=== PATIENT | female | born 1965 | race Caucasian/White ===

== ENCOUNTER 2016-12-09 09:07 | Emergency (ER) | payer OTHER ==
[~2016-12-09] VITALS: Ht 157.5 cm; Wt 88.9 kg
[~2016-12-09 09:07] MED LIST: AMLODIPINE10 M2 PO; ASPIRIN 81MG TA81 MG PO; CLINDAMYCIN300 MG PO; FUROSEMIDE 20MG20 MG FT; HYDROCHLOROTHIA25 M1 PO; LOSARTAN POTASS25 MG PO; METOPROLOL25 MG PO; POTASSIUM CHLO20 ME2 PO; VENTOLIN H0.09 MG/Ac IH
[2016-12-09] MEDS ORDERED: CARVEDILOL3.125 MG PO (09:17)
[2016-12-09] MEDS ORDERED: ENTRESTO 49 MG1 EACH PO (09:18)
[2016-12-09] MEDS ORDERED: PROVENTIL0.09 MG/A1 IH (09:37)
--- NOTE | 2016-12-09 09:38 | Urgent Treatment Center Report ---
History of Present Issue Date/Time Seen by Provider 12/09/16 0920 Visit Reason Pt arrived:Walked Presenting Problem:PT STATES COUGH AND CONGESTION FOR PAST FIVE DAYS. STATES WHEN SHE COUGHS, HER CHEST AND BACK HURTS Location if Accident: Onset of symptoms date/time:/ or onset unknown for:MEDICAL HX UNKNOWN Have you (or family members/close friends) recently traveled outside the [place]? N If Yes, where/when: Have you had exposure to infectious disease within the past month? TB? Other? Specify: c/o "I think I have bronchitis and need a steroid shot. I don't like steroid pills because of the side effects but a shot doesn't do that to me." c/o frequent nonprod cough x 4-5 days. Worse at night, with activity, with talking. Has noticed mild SOA and not sure about wheezing. aches but no fever or chills. Hx of tobacco abuse but quit 01/2016. Hasn't taken or tried anything for symptoms "because I now I just need some steroids". No known sick contacts. Source patient Exam Limitations no limitations ALLERGIES Coded Allergies: Sulfa (Sulfonamide Antibiotics) (03/21/16) Tetanus Vaccines and Toxoid (TETANUS VACCINES & TOXOID) (03/21/16) amoxicillin (03/21/16) clavulanic acid (03/21/16) Home Medications Reported Medications Furosemide (Furosemide) 20 MG FT DAILY #30 ASPIRIN (Aspirin) 81 MG PO DAILY POTASSIUM CHL (Potassium Chloride) 20 MEQ PO DAILY Carvedilol (Carvedilol 3.125MG) 3.125 MG PO BID Sacubitril/Valsartan (Entresto 49 MG-51 MG Tablet) 1 EACH PO BID History Medical History General CAD? No Angina: No AR: No Hypertension? Yes Hyperlipidemia? No CHF? Yes DVT? No PE? No COPD? No Asthma? No Anemia? No GERD? No Gastric ulcers? No GI Bleed? No Hernia? No Thyroid Problems? No Hypothyroidism? No CVA? No Seizures? No Diabetes? No Renal Insuffiency? No UTI? Yes Stones? No BPH? No GB Disease: No Nephritic Syndrome? No Asplenia? No Hepatitis? No Sickle Cell Disease? No Arthritis? No Migraines? No Cataracts? No Glaucoma? No MRSA? No HIV? No TB? No Anxiety? No Depression? No Cancer? No More? No Immunization HX DT/Tetanus 1996 Surgical Hx Previous Surgery?Y Tubal Ligation D & C HYSTERECTOMY HEART CATH [employer] Hx LMP N/A Family History Family HX Diabetes No CAD Yes Hypertension No Hyperlipidemia No Cancer Yes TB No Social History Smoking Hx Smoker: Former Smoker Tobacco: No Packs/day 1 1/2 - 2 Packs Alcohol Alcohol: No Review of Systems All Other Systems Reviewed and Negative Constitutional see HPI Eyes denies drainage ENT denies: ear pain, nose discharge, nose congestion, throat pain. Respiratory see HPI Cardiovascular denies chest pain, denies edema, denies palpitations Gastrointestinal denies no symptoms reported Musculoskeletal back pain ("from coughing now") Skin denies rash Psychiatric/Neurological denies no symptoms reported Physical Exam Vital Signs Vital Signs Date Time Temp Pulse Resp B/P Pulse O2 O2 Flow FiO2 Ox Delivery Rate 12/09 914 97.4 70 18 146/77 95 General Appearance no apparent distress, obese Eye Exam - bilateral eye normal exam Ear, Nose, Throat normal ENT inspection Neck non-tender, supple Respiratory Status Yes: trachea midline, chest symmetrical, non tender chest, non productive cough (worse w/ deep breaths). No: respiratory distress, use of accessory muscles, pain on inspiration, pain on expiration. Lung Sounds anterior: lungs clear. posterior: lungs clear. bilateral: lungs clear. Cardiovascular regular rate/rhythm, no peripheral edema, no murmur Neurologic alert, oriented x 3 Mental status normal mood/affect Skin normal color, warm/dry Lymphatic no adenopathy Medical Decision Making LABS/Meds/Orders Pt receiving controlled substance in ED? No Results/Orders Current Medication Orders Sig/Yassine Start time Last Medication Dose Route Stop Time Status Admin Methylprednisolone 0 .STK-MED ONE 12/09 930 DC Sodium Succinate .ROUTE Methylprednisolone 125 MG ONCE ONE 12/09 929 DC 12/09 Sodium Succinate IM 12/09 930 0934 Departure Departure Time of Disposition 0940 Disposition DC Home or Self Care(routine) Clinical Impression Primary Impression: Acute bronchitis Qualifiers: Bronchitis organism: unspecified organism Qualified Code: J20.9 - Acute bronchitis, unspecified Condition STABLE Referrals NO REFERRAL Follow up IMMEDIATELY with your primary care, ER or [facility] for new or worsening symptoms OR no noticeable improvement over the next 72 hours. 911 for difficulty breathing. Patient Instructions DI for Acute Bronchitis Additional Instructions * No sign of bacterial infection. Likely viral. Virus can take 7-14 days to run their course but the medication prescribed should help you feel better. If not, be sure to follow up. Viruses can lead to infection so follow up if new or worsening symptoms is important. * Monitor Temp. No fever over the last 4-5 days so wouldn't expect one. If one starts, be sure to follow up. * humidifier/vaporizer/hot steamy shower * Inhaler every 4-6 hours as needed like we discussed. You said you have used one in the past. Should help open airways and improve cough, wheezing, shortness of breath. * Mucinex during the day for your cough and cough suppressant only at night. Be sure to drink lots of water but no more then your restrictions. Insurance may not cover a prescription of mucinex. Might be cheaper to get 400mg tablets and take 2 tablets morning, midday and evening all with lots of water. * Promethazine DM is currently unavailable due to back order. Try robitussin DM but Use it only at night and mucinex during the day. * Solu-medrol Injection: you received an injection of solu-medrol today. This is a steroid as we discussed. Remember as we discussed, steroids can cause you to feel flushed, jittery, difficult to sleep, energetic, higher blood pressure. You report you have taken steroids before and aware of this. Follow up IMMEDIATELY for new or worsening symptoms OR no noticeable improvement over the next 48-72 hours. 911 for difficulty breathing. Discharge Counseling Counseled pt/family regarding diagnosis, medications/RX, home care, follow up needs Prescriptions Current Visit Scripts ALBUTEROL (Proventil Hfa Inhaler) 1-2 PUFF IH Q4-6H PRN PRN SOA, wheezing, #1 CAN at 0938
[2016-12-09 09:49] VITALS: BP 146/77
--- OUTSIDE RECORDS SUMMARY | 2016-12-09 10:11 | External Medical Summary Rpt ---
Author Author , Organization [employer] Address Unknown Phone Unavailable Purpose Continuity of Care Document - through 2016
--- OUTSIDE RECORDS SUMMARY | 2016-12-09 10:11 | External Medical Summary Rpt ---
Author Author [employer] Organization [employer] Address Unknown Phone Unavailable Purpose Continuity of Care Document - through 2016
--- OUTSIDE RECORDS SUMMARY | 2016-12-09 10:11 | External Medical Summary Rpt ---
Author Author [facility] Organization [facility] Address Unknown Phone Unavailable Care Team Providers Care Meat Stocker Name Role Phone CHADWICK YUSUF PCP [phone] Encounter [facility] [id number] Date(s): 02/19/16 - 02/22/16 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 AGENT Vital Signs Most recent 1 2 3 to oldest [Reference Range]: Temperature Oral Oral (02/21/16 Oral Source (02/22/16 3:20 AM) 11:30 PM) (02/21/16 7:30 PM) Temperature Fahrenheit Fahrenheit Fahrenheit Mode (02/22/16 3:20 AM) (02/21/16 11:30 (02/21/16 7:30 PM) PM) Temperature, 97.1 Deg F 97.5 Deg F 98.2 Deg F Fahrenheit (02/22/16 3:20 AM) (02/21/16 11:30 (02/21/16 7:30 PM) [96.8-99.7 PM) Deg F] Clinical 36.2 Deg C 36.4 Deg C 36.8 Deg C Temperature, (02/22/16 3:20 AM) (02/21/16 11:30 (02/21/16 7:30 PM) C PM) Heart Rate, 102 bpm 89 bpm 110 bpm Apical *HI* (02/21/16 8:53 PM) *HI* [60-100 bpm] (02/22/16 8:47 AM) (02/21/16 8:11 AM) Peripheral 124 bpm Pulse Rate *HI* [60-100 bpm] (02/19/16 4:51 PM) Heart Rate 96 bpm 96 bpm 55 bpm Monitored (02/22/16 8:08 AM) (02/22/16 3:20 AM) *LOW*(02/21/16 [60-100 bpm] 11:30 PM) Respiratory 16 Breaths/Min 20 Breaths/Min 20 Breaths/Min Rate [14-20 (02/22/16 8:08 AM) (02/21/16 3:01 PM) (02/21/16 10:30 Breaths/Min] AM) Blood 124/76 mmHg 117/70 mmHg 109/65 mmHg Pressure (02/22/16 3:20 AM) (02/21/16 11:30 (02/21/16 7:30 PM) [90-140/60-9 PM) 0 mmHg] Mean 92 87 (02/21/16 11:30 81 Arterial (02/22/16 3:20 AM) PM) (02/21/16 7:30 PM) Pressure (MAP)-BMDI Oxygen 92 % 90 % 94 % Saturation *LOW* *LOW*(02/21/16 (02/21/16 7:30 PM) [94-100 %] (02/22/16 3:20 AM) 11:30 PM) Oxygen Room air Room air Room air Therapy Mode (02/22/16 8:09 AM) (02/22/16 8:08 AM) (02/21/16 8:02 PM) Oxygen Flow 2 Liter/Min 2 Liter/Min 2 Liter/Min Rate (02/21/16 7:23 AM) (02/21/16 3:45 AM) (02/21/16 12:11 AM) Problem List Condition Effective Status Health Informant Dates Status bloating(Con Active firmed) luis(Conf Active irmed) Candidiasis( Resolved Confirmed) Heart Active burn(Confirm ed) High blood Active pressure(Con firmed) Allergies, Adverse Reactions, Alerts Substance Reaction Severity Status sulfamethoxazole Nausea and vomiting Active Medications albuterol (Ventolin HFA 90 mcg/inh inhalation aerosol)2 Puff, Inhalation, Every 6 Hours, As Needed, Dyspnea, Refills: 0Ordering provider: LENI INFANTE MD aspirin (aspirin 81 mg oral tablet, chewable) 1 Tab, Chew, Every Day, Refills: 0 doxycycline (doxycycline hyclate 100 mg oral capsule)1 Cap, Oral, Two Times A Day, 3 Day(s), Refills: 0Ordering provider: LENI INFANTE MD formoterol-mometasone (Dulera 100 mcg-5 mcg/inh inhalation aerosol)2 Puff, Inhalation, Two Times A Day, 30 Day(s), Refills: 0Ordering provider: LENI INFANTE MD lisinopril (lisinopril 5 mg oral tablet) 1 Tab, Oral, Every Day, 30 Day(s), Refills: 0 Ordering provider: LENI INFANTE MD loratadine (Claritin 10 mg oral tablet) 1 Tab, Oral, Every Day, Refills: 0 metoprolol (Metoprolol Succinate ER 25 mg oral tablet, extended release)1 Tab, Oral, Two Times A Day, 30 Day(s), Refills: 0Ordering provider: LENI INFANTE MD nicotine (Habitrol 21 mg/24 hr transdermal film, extended release)1 Patch, TransDermal , Every Day, 14 Day(s), Refills: 0Ordering provider: LENI INFANTE MD predniSONE (predniSONE 20 mg oral tablet) 1 Tab, Oral, Every Day, 5 Day(s), Refills: 0 Ordering provider: LENI INFANTE MD Results GENERAL CHEMISTRY Most recent 1 2 3 to oldest [Reference Range]: Sodium Level 140 mmol/L 141 mmol/L 141 mmol/L [136-146 (02/22/16 6:35 AM) (02/21/16 6:03 PM) (02/21/16 6:12 AM) mmol/L] Potassium 3.9 mmol/L 3.5 mmol/L 2.8 mmol/L Level (02/22/16 6:35 AM) (02/21/16 6:03 PM) 1*CRIT*(02/21/16 [3.5-5.1 6:12 AM) mmol/L] Chloride 103 mmol/L 103 mmol/L 102 mmol/L Level (02/22/16 6:35 AM) (02/21/16 6:03 PM) (02/21/16 6:12 AM) [102-112 mmol/L] Carbon 28 mmol/L 27 mmol/L 25 mmol/L Dioxide (02/22/16 6:35 AM) (02/21/16 6:03 PM) (02/21/16 6:12 AM) Level [21-32 mmol/L] Anion Gap 13 14 (02/21/16 6:03 17 (02/21/16 6:12 [9-20] (02/22/16 6:35 AM) PM) AM) Glucose 152 mg/dL 212 mg/dL 174 mg/dL Level *HI* *HI*(02/21/16 6:03 *HI*(02/21/16 6:12 [74-106 (02/22/16 6:35 AM) PM) AM) mg/dL] Blood Urea 21 mg/dL 12 mg/dL (02/21/16 12 mg/dL (02/21/16 Nitrogen (02/22/16 6:35 AM) 6:03 PM) 6:12 AM) [7-22 mg/dL] Creatinine 0.80 mg/dL 1.00 mg/dL 0.80 mg/dL Level (02/22/16 6:35 AM) (02/21/16 6:03 PM) (02/21/16 6:12 AM) [0.55-1.02 mg/dL] eGFR 91 mL/min/1.73m2 71 mL/min/1.73m2 91 mL/min/1.73m2 [>=60 (02/22/16 6:35 AM) (02/21/16 6:03 PM) (02/21/16 6:12 AM) mL/min/1.73m 2] eGFR 75 mL/min/1.73m2 58 mL/min/1.73m2 75 mL/min/1.73m2 NonAfrican (02/22/16 6:35 AM) *LOW*(02/21/16 (02/21/16 6:12 AM) [>=60 6:03 PM) mL/min/1.73m 2] Bun/Creatini 26.2 12.0 (02/21/16 15.0 (02/21/16 ne *HI* 6:03 PM) 6:12 AM) [8.0-20.0] (02/22/16 6:35 AM) Calcium 9.0 mg/dL 9.3 mg/dL 9.1 mg/dL Level (02/22/16 6:35 AM) (02/21/16 6:03 PM) (02/21/16 6:12 AM) [8.5-10.1 mg/dL] Magnesium 2.0 mg/dL 1.9 mg/dL Level (02/21/16 6:12 AM) (02/20/16 4:20 AM) [1.5-2.4 mg/dL] 1Result Comment: CALLED TO:Jes Wilkerson DATE/TIME CALLED:02/21/2016 07:32:07 EDT READ BACK AND VERIFIED:Yes CALLED BY: SAACARDIAC SPECIFIC MARKERS Most recent 1 2 3 to oldest [Reference Range]: Troponin I 0.030 ng/mL 0.030 ng/mL Ultra (02/20/16 4:20 AM) (02/19/16 6:35 PM) [0.015-0.045 ng/mL] ProBNP 1956 pg/mL [0-125 *HI*(02/19/16 6:35 pg/mL] PM) HEMATOLOGY Most recent 1 2 3 to oldest [Reference Range]: WBC 10.5 K/uL 10.9 K/uL [4.0-10.0 *HI*(02/21/16 6:12 *HI*(02/19/16 6:35 K/uL] AM) PM) RBC 4.57 Million/uL 4.59 Million/uL [3.93-5.22 (02/21/16 6:12 AM) (02/19/16 6:35 PM) Million/uL] Hgb 13.9 g/dL 14.0 g/dL [11.2-15.7 (02/21/16 6:12 AM) (02/19/16 6:35 PM) g/dL] Hct 42.1 % (02/21/16 40.8 % (02/20/16 42.0 % (02/19/16 [34.1-44.9 6:12 AM) 4:20 AM) 6:35 PM) %] MCV 92.1 fL (02/21/16 91.5 fL (02/19/16 [79.0-94.8 6:12 AM) 6:35 PM) fL] MCH 30.4 pg (02/21/16 30.5 pg (02/19/16 [25.6-32.2 6:12 AM) 6:35 PM) pg] MCHC 33.0 Gram/dL 33.3 Gram/dL [32.2-36.5 (02/21/16 6:12 AM) (02/19/16 6:35 PM) Gram/dL] Platelet 344 K/uL (02/21/16 348 K/uL (02/19/16 Count 6:12 AM) 6:35 PM) [163-369 K/uL] MPV 10.4 fL (02/21/16 10.4 fL (02/19/16 [9.4-12.4 6:12 AM) 6:35 PM) fL] RDW 14.0 % (02/21/16 13.9 % (02/19/16 [11.6-14.4 6:12 AM) 6:35 PM) %] Neut % 89.0 % 67.0 % (02/19/16 [34.0-71.0 *HI*(02/21/16 6:12 6:35 PM) %] AM) Neut # 9.33 K/uL 7.30 K/uL [1.56-6.13 *HI*(02/21/16 6:12 *HI*(02/19/16 6:35 K/uL] AM) PM) Lymph % 7.0 % 25.3 % (02/19/16 [19.3-53.1 *LOW*(02/21/16 6:35 PM) %] 6:12 AM) Lymph # 0.73 x10(3)/uL 2.76 x10(3)/uL [1.00-3.90 *LOW*(02/21/16 (02/19/16 6:35 PM) x10(3)/uL] 6:12 AM) [place] % 3.6 % (02/21/16 5.7 % (02/19/16 [3.0-9.0 %] 6:12 AM) 6:35 PM) [place] # 0.38 K/uL 0.62 K/uL [0.16-1.00 (02/21/16 6:12 AM) (02/19/16 6:35 PM) K/uL] Eos % 0.0 % (02/21/16 0.9 % (02/19/16 [0.0-7.0 %] 6:12 AM) 6:35 PM) Eos # 0.00 x10(3)/uL 0.10 x10(3)/uL [0.00-0.80 (02/21/16 6:12 AM) (02/19/16 6:35 PM) x10(3)/uL] Baso % 0.1 % (02/21/16 0.5 % (02/19/16 [0.0-1.5 %] 6:12 AM) 6:35 PM) Baso # 0.01 x10(3)/uL 0.06 x10(3)/uL [0.00-0.20 (02/21/16 6:12 AM) (02/19/16 6:35 PM) x10(3)/uL] Sed Rate Man 10 mm/Hr (02/20/16 [0-20 4:20 AM) mm/Hr] Slide Review No (02/21/16 6:12 No (02/19/16 6:35 AM) PM) IG# 0.03 x10(3)/uL 0.07 x10(3)/uL [0.00-0.05 (02/21/16 6:12 AM) *HI*(02/19/16 6:35 x10(3)/uL] PM) IG% 0.30 % (02/21/16 0.60 % (02/19/16 [0.00-0.60 6:12 AM) 6:35 PM) %] ENDOCRINOLOGY Most recent 1 2 3 to oldest [Reference Range]: TSH 1.530 mcInt [0.358-3.740 Units/mL (02/20/16 mcInt 4:20 AM) Units/mL] FT4 1.55 ng/dL [0.76-1.46 *HI*(02/20/16 4:20 ng/dL] AM) Immunizations No data available for this section Procedures No data available for this section Social History Social History Response Type Smoking Status Current every day smoker Assessment and Plan Extracted from: Title: IK note Author: LENI INFANTE Date: 02/21/16 [id number] y old F admitted with AHRP and possible pulm edemapt seen this am, awake, resting comfortably, some mild cough and wheezing +no cp, emesis, rash, fever. no cp, emesis, rash, fever. Health StatusAllergies:Allergic Reactions (Selected)Severity Not DocumentedSulfamethoxazole- Nausea and vomiting.,Allergies (1) ActiveReactionsulfamethoxazoleNausea and vomitingCurrent medications: (Selected)Inpatient MedicationsOrderedClaritin: 10 mg, Oral, DailyDulera 100 mcg-5 mcg/inh inhalation aerosol: 2 Puff, Inhalation, BIDDuoNeb 0.5 mg-2.5 mg/3 mL inhalation solution: 3 mL, Nebulized Inhalation, [id number] 21 mg/24 hr transdermal film, extended release: 1 Patch, TransDermal, DailyLasix bolus: 40 mg, IV Push, DailyMetoprolol Succinate ER: 25 mg, Oral, BIDMiraLax: 17 Gram, Oral, Daily, PRN: ConstipationNormal Saline Flush: 10 mL, IV Push, [id number] Saline Flush: 10 mL, IV Push, See Comment, PRN: IV UsePepcid: 20 mg, Oral, On-CALLPepcid: 20 mg, Oral, [id number]: 40 mg, IntraVENous, BIDTylenol: 650 mg, Oral, Q4H, PRN: FeverTylenol: 650 mg, Oral, Q4H, PRN: Pain (Mild 1-3)Zofran: 4 mg, IV Push, Q10Min, PRN: Nausea/VomitingZofran: 4 mg, IV Push, Q4H, PRN: Nausea/Vomitingaspirin: 81 mg, Chew, Dailyaspirin: 81 mg, Oral, On-CALLdocusate sodium: 100 mg, Oral, BID, PRN: Constipationdoxycycline: 100 mg, Oral, BIDlisinopril: 5 mg, Oral, Dailypotassium chloride: 40 mEq, Oral, AM and NoonPending Completepneumococcal 23-polyvalent vaccine: 0.5 mL, IntraMuscular, [id number] MedicationsDocumentedMetoprolol Tartrate 25 mg oral tablet: 0.5 Tab, Oral, DailyPhillips Colon Health oral capsule: 1 Cap, Oral, Daily, 30 Cap, 0 Refill(s)hydrochlorothiazide 25 mg oral tablet: 1 Tab, Oral, Daily,Home Medications (3) Activehydrochlorothiazide 25 mg oral tablet 25 mg = 1 Tab, Oral, DailyMetoprolol Tartrate 25 mg oral tablet 12.5 mg = 0.5 Tab, Oral, DailyPhillips Colon Health oral capsule 1 Cap, Oral, Daily,Medications (22) ActiveScheduled: (15)#NaCl 0.9% *FLUSH* inj 10 mL 10 mL, IV Push, K86Qgziyzlrsz-wviyqdkgrfi inh 3 mL 3 mL, Nebulized Inhalation, C7Mblemkkt 81 mg chew tab 81 mg 1 Tab, Chew, Dailyaspirin 81 mg chew tab 81 mg 1 Tab, Oral, On-CALLdoxycycline hyclate 100 mg cap 100 mg 1 Cap, Oral, BIDfamotidine 20 mg tab 20 mg 1 Tab, Oral, V22Mebagzhweda 20 mg tab 20 mg 1 Tab, Oral, On-CALLfurosemide 40 mg/4 mL inj 40 mg 4 mL, IV Push, Dailylisinopril 5 mg tab 5 mg 1 Tab, Oral, Dailyloratadine 10 mg tab 10 mg 1 Tab, Oral, DailymethylPREDNISolone succinate 40 mg/1 mL inj PF 40 mg 1 mL, IntraVENous, BIDmetoprolol succinate XL 25 mg tab 25 mg 1 Tab, Oral, BIDmometasone/formoterol 100/5 mcg inh 2 Puff, Inhalation, BIDnicotine 21 mg/24 hr patch 1 Patch, TransDermal, Dailypotassium chloride 40 mEq/30 mL liq 40 mEq 30 mL, Oral, AM and NoonContinuous: (0)PRN: (7)#NaCl 0.9% *FLUSH* inj 10 mL 10 mL, IV Push, See Commentacetaminophen 325 mg tab 650 mg 2 Tab, Oral, J4Aackhihqayuaqf 325 mg tab 650 mg 2 Tab, Oral, U3Gkepvdqjw sodium 100 mg cap 100 mg 1 Cap, Oral, BIDondansetron 4 mg/2 mL inj 4 mg 2 mL, IV Push, L2Ufzoavpjdtlh 4 mg/2 mL inj 4 mg 2 mL, IV Push, R56Gkbrgflvtgiqyzg glycol 3350 pwd 17 g pkt 17 Gram 1 Packet, Oral, DailyProblem list:Active Problems (4)bloating luis Heart burn High blood pressure #NaCl 0.9% *FLUSH* inj 10 mL 10 mL, IV Push, Q12H albuterol-ipratropium inh 3 mL 3 mL, Nebulized Inhalation, Q4H aspirin 81 mg chew tab 81 mg 1 Tab, Chew, Daily aspirin 81 mg chew tab 81 mg 1 Tab, Oral, On-CALL doxycycline hyclate 100 mg cap 100 mg 1 Cap, Oral, BID famotidine 20 mg tab 20 mg 1 Tab, Oral, Q12H famotidine 20 mg tab 20 mg 1 Tab, Oral, On-CALL furosemide 40 mg/4 mL inj 40 mg 4 mL, IV Push, Daily lisinopril 5 mg tab 5 mg 1 Tab, Oral, Daily loratadine 10 mg tab 10 mg 1 Tab, Oral, Daily methylPREDNISolone succinate 40 mg/1 mL inj PF 40 mg 1 mL, IntraVENous, BID metoprolol succinate XL 25 mg tab 25 mg 1 Tab, Oral, BID mometasone/formoterol 100/5 mcg inh 2 Puff, Inhalation, BID nicotine 21 mg/24 hr patch 1 Patch, TransDermal, Daily potassium chloride 40 mEq/30 mL liq 40 mEq 30 mL, Oral, AM and Noon Continuous: (0) PRN: (7) #NaCl 0.9% *FLUSH* inj 10 mL 10 mL, IV Push, See Comment acetaminophen 325 mg tab 650 mg 2 Tab, Oral, Q4H acetaminophen 325 mg tab 650 mg 2 Tab, Oral, Q4H docusate sodium 100 mg cap 100 mg 1 Cap, Oral, BID ondansetron 4 mg/2 mL inj 4 mg 2 mL, IV Push, Q4H ondansetron 4 mg/2 mL inj 4 mg 2 mL, IV Push, Q10Min polyethylene glycol 3350 pwd 17 g pkt 17 Gram 1 Packet, Oral, Daily Problem list: Active Problems (4) bloating luis Heart burn High blood pressure ObjectiveVS/MeasurementsVitals Signs (last 24 hrs) Last Charted Minimum MaximumTemp L 96.4 (FEB 20 07:57)L 96.4 (FEB 20 07:57)98.7 (FEB 19 20:00)Apical HR H 110 (FEB 20 08:11)78 (FEB 19 20:20)H 110 (FEB 20 08:11)Mon HR 96 (FEB 20 11:08)90 (FEB 20 00:11)107 (FEB 20 07:57)Resp Rate 20 (FEB 20 07:57)18 (FEB 20 00:11)20 (FEB 19 20:00)SBP 117 (FEB 20 07:57)117 (FEB 20 07:57)134 (FEB 19 20:00)DBP 60 (FEB 20 07:57)60 (FEB 20 07:57)H 93 (FEB 19 20:00)MAP 76 (FEB 20 07:57)76 (FEB 20 07:57)110 (FEB 19 20:00)SpO2 L 93 (FEB 20:57)L 93 (FEB 20 07:57)99 (FEB 19 20:26)General: No acute distress.Eye: Normal conjunctiva.Neck: No jugular venous distention.Respiratory: Respirations are non-labored, Breath sounds are equal, ida wheezing/rales noted.Cardiovascular: Regular rhythm, No gallop, S1+ S2 No S3 or S4 [place]..Gastrointestinal: Soft, Non-tender, Non-distended, Normal bowel sounds.Integumentary: No rash.Neurologic: No focal deficits.Psychiatric: Cooperative. Gastrointestinal: Soft, Non-tender, Non-distended, Normal bowel sounds. Integumentary: No rash. Neurologic: No focal deficits. Psychiatric: Cooperative. Results ReviewGeneral resultsInterpretation: FEB 20 06:12 141 | 102 | 12 / H 174 C 2.8 | 25 | 0.80 \\ FEB 20 06:12 \\ 13.9 / H 10.5 344 / 42.1 \\Labs (Last four charted values)WBC H 10.5(FEB 20)H 10.9(FEB 18)HB 13.9(FEB 20)14.0(FEB 18)HCT 42.1(FEB 20)40.8(FEB 19)42.0(FEB 18)Plt 344(FEB 20)348(FEB 18)Na 141(FEB 20)140(FEB 19)141(FEB 18)K C 2.8(FEB 20)L 3.3(FEB 19)L 3.2(FEB 18)Cl 102(FEB 20)102(FEB 19)104(FEB 18)CO2 25(FEB 20)30(FEB 19)27(FEB 18)BUN 12(FEB 20)10(FEB 19)8(FEB 18)Cr 0.80(FEB 20)0.70(FEB 19)L 0.50(FEB 18)Glu R H 174(FEB 20)H 146(FEB 19)98(FEB 18)Ca 9.1(FEB 20)9.0(FEB 19)8.5(FEB 18)Troponin 0.030(FEB 19)0.030(FEB 18)PROBNP H 1956(FEB 18) Radiology Results (Last 48 hours)[id number] -- 02/20/2016 04:03CR Chest 1 Vw Portable (02/19/2016 17:38) Result: PORTABLE CHESTHISTORY: Shortness of breath for 2 months, hypoxia.COMPARISON: None.FINDINGS: A single portable radiograph of the chest was performed. Thereare cardiac electrodes overlying the chest wall. There is cardiomegaly.The aortic contours are normal. The lungs are well expanded withno infiltrate or edema. There is mild pulmonary vascular congestion.There are no pleural effusions. There is no pneumothorax identified. Thevisualized osseous structures demonstrate AC joint degenerative changes. IMPRESSION: Cardiomegaly with pulmonary venous vascular congestion.There is no edema, infiltrate, or effusion..CTA Chest PE Protocol (02/20/2016 16:44) Result: CT ANGIOGRAPHY OF THE CHEST: PE PROTOCOLHISTORY: Chest pain, shortness of breathTECHNIQUE: Thin-section axial images through the chest were performedfollowing the administration of 100 mL of Isovue-370 intravenously.Coronal oblique 3D MIP images were performed and reviewed. Thisstudy was performed with techniques to keep radiation doses as low asreasonably achievable, (ALARA). Individualized dose reduction techniquesusing automated exposure control or adjustment of mA and/or kV accordingto the patient size were employed. A bismuth breast shield was utilizedfor radiation dose reduction.FINDINGS:The thoracic inlet is unremarkable. The thoracic aorta is normal incaliber. There is no aneurysm. There is cardiomegaly. The pulmonaryarteries are well enhanced. There are no filling defects, to coincidewith a pulmonary embolism. The very distal subsegmental arteries are notwell visualized due to motion artifact. Tiny peripheral emboli could bemissed. There is a small pericardial effusion. There are minimal pleuraleffusions. Small scattered lymph nodes are noted within the axillaryregions. There is a 1.4 cm lymph node in the left prevascular space.Precarinal lymph nodes are present measuring 1.3 cm. A subcarinal lymphnode is present measuring 1.4 cm. The lung windows demonstrate mild tomoderate centrilobular emphysema. There is dependent atelectasis. Thereis no parenchymal infiltrate. There is mild vascular congestion withpossible mild interstitial edema. Imaging of the upper abdomendemonstrates a prior cholecystectomy. There is lobular soft tissuedensity adjacent to the medial upper pole of the left kidney. Two areasmeasure 2.4 and 2.7 cm. These may represent a hyperdense cyst. Considerfollow-up with renal mass protocol CT.IMPRESSION:1. No pulmonary embolism. The very distal subsegmental vessels in thelung bases are not well imaged due to motion artifact.2. Gsmh-ja-apibhxot centrilobular emphysema.3. Mild interstitial edema with mild bibasilar atelectasis.4. Mediastinal lymph nodes as above.5. Lobular soft tissue density medial to the upper pole of the leftkidney that could be related to hyperdense cysts or less likelyneoplasm. Impression and Planacute hypoxic resp failure-multifactorialacute systolic + diastolic CHF-EF 35% with pulm edema/fluid overloadlikely underlying copd with acute exacerbationheavy/long standing tobacco usemediastinal Lymphadenopathylikely acute bronchitisleukocytosisHx nasal allergieshypokalemia-worseHTNrecent panendoscopyPlan:cont doxy, taper steroids, cont nebs and claritin, added dulera, will need out pt PFT and pulm consult-appt with dr Sevilla arranged-also need f/u ct chest-d/w pt/familyLHC pending, cards consult, clement as able, dc HCTZ, added MIRANDA, cont BB and ASAfollow renal fxs and replace K prn, cont ASA for now, cont nicotine patch, urge to quit tobacco, long d/w pt and spouse. recent panendoscopy Plan: cont doxy, taper steroids, cont nebs and claritin, added dulera, will need out pt PFT and pulm consult-appt with dr Sevilla arranged-also need f/u ct chest-d/w pt/family LHC pending, cards consult, lasix as able, dc HCTZ, added MIRANDA, cont BB and ASA follow renal fxs and replace K prn, cont ASA for now, cont nicotine patch, urge to quit tobacco, long d/w pt and spouse. Extracted from: Title: IK note Author: LENI INFANTE, Date: 02/20/16 [id number] y old F admitted with AHRP and possible pulm edemapt seen this am, awake, resting comfortably, some mild cough and wheezing +no cp, emesis, rash, fever. no cp, emesis, rash, fever. Health StatusAllergies:Allergic Reactions (Selected)Severity Not DocumentedSulfamethoxazole- Nausea and vomiting.,Allergies (1) ActiveReactionsulfamethoxazoleNausea and vomitingCurrent medications: (Selected)Inpatient MedicationsOrderedClaritin: 10 mg, Oral, DailyDulera 100 mcg-5 mcg/inh inhalation aerosol: 2 Puff, Inhalation, BIDDuoNeb 0.5 mg-2.5 mg/3 mL inhalation solution: 3 mL, Nebulized Inhalation, G4DOumntxxk 21 mg/24 hr transdermal film, extended release: 1 Patch, TransDermal, DailyLasix bolus: 40 mg, IV Push, DailyMetoprolol Succinate ER: 25 mg, Oral, BIDMiraLax: 17 Gram, Oral, Daily, PRN: ConstipationNormal Saline Flush: 10 mL, IV Push, [id number] Saline Flush: 10 mL, IV Push, See Comment, PRN: IV UsePepcid: 20 mg, Oral, On-CALLPepcid: 20 mg, Oral, [id number]-[id number]: 40 mg, IntraVENous, R7ZVobcphy: 650 mg, Oral, Q4H, PRN: FeverTylenol: 650 mg, Oral, Q4H, PRN: Pain (Mild 1-3)Zofran: 4 mg, IV Push, Q10Min, PRN: Nausea/VomitingZofran: 4 mg, IV Push, Q4H, PRN: Nausea/Vomitingaspirin: 81 mg, Chew, Dailyaspirin: 81 mg, Oral, On-CALLdocusate sodium: 100 mg, Oral, BID, PRN: Constipationdoxycycline: 100 mg, Oral, BIDhydrochlorothiazide: 25 mg, Oral, Dailylisinopril: 5 mg, Oral, Dailypneumococcal 23-polyvalent vaccine: 0.5 mL, IntraMuscular, H95BSmpYpvgbecuveiobYpepwsibwdQurzmqls Colon Health oral capsule: 1 Cap, Oral, Daily, 30 Cap, 0 Refill(s)Documented MedicationsDocumentedMetoprolol Tartrate: 12.5 mg, Oral, Daily, 0 Refill(s)Premarin: 1 Tab, Oral, Daily, 0 Refill(s)hydrochlorothiazide: 25 mg, Oral, Daily, 0 Refill(s),Home Medications (4) Activehydrochlorothiazide 25 mg, Oral, DailyMetoprolol Tartrate 12.5 mg, Oral, DailyPhillips Colon Health oral capsule 1 Cap, Oral, DailyPremarin 1 Tab, Oral, Daily,Medications (23) ActiveScheduled: (16)#NaCl 0.9% *FLUSH* inj 10 mL 10 mL, IV Push, X21Xfoavthksf-mjzvdxqnapn inh 3 mL 3 mL, Nebulized Inhalation, X9Yzdtiwxv 81 mg chew tab 81 mg 1 Tab, Chew, Dailyaspirin 81 mg chew tab 81 mg 1 Tab, Oral, On-CALLdoxycycline hyclate 100 mg cap 100 mg 1 Cap, Oral, BIDfamotidine 20 mg tab 20 mg 1 Tab, Oral, Y20Yzaiyvpblid 20 mg tab 20 mg 1 Tab, Oral, On-CALLfurosemide 40 mg/4 mL inj 40 mg 4 mL, IV Push, Dailyhydrochlorothiazide 25 mg tab 25 mg 1 Tab, Oral, Dailylisinopril 5 mg tab 5 mg 1 Tab, Oral, Dailyloratadine 10 mg tab 10 mg 1 Tab, Oral, DailymethylPREDNISolone succinate 40 mg/1 mL inj PF 40 mg 1 mL, IntraVENous, X1Iovlirelbhn succinate XL 25 mg tab 25 mg 1 Tab, Oral, BIDmometasone/formoterol 100/5 mcg inh 2 Puff, Inhalation, BIDnicotine 21 mg/24 hr patch 1 Patch, TransDermal, Dailypneumococcal 23-nichelle vacc inj 0.5 mL 0.5 mL, IntraMuscular, [id number]: (0)PRN: (7)#NaCl 0.9% *FLUSH* inj 10 mL 10 mL, IV Push, See Commentacetaminophen 325 mg tab 650 mg 2 Tab, Oral, [id number] 325 mg tab 650 mg 2 Tab, Oral, [id number] sodium 100 mg cap 100 mg 1 Cap, Oral, BIDondansetron 4 mg/2 mL inj 4 mg 2 mL, IV Push, [id number] 4 mg/2 mL inj 4 mg 2 mL, IV Push, [id number] glycol 3350 pwd 17 g pkt 17 Gram 1 Packet, Oral, DailyProblem list:Active Problems (4)bloating luis Heart burn High blood pressure Medications (23) Active Scheduled: (16) #NaCl 0.9% *FLUSH* inj 10 mL 10 mL, IV Push, Q12H albuterol-ipratropium inh 3 mL 3 mL, Nebulized Inhalation, Q4H aspirin 81 mg chew tab 81 mg 1 Tab, Chew, Daily aspirin 81 mg chew tab 81 mg 1 Tab, Oral, On-CALL doxycycline hyclate 100 mg cap 100 mg 1 Cap, Oral, BID famotidine 20 mg tab 20 mg 1 Tab, Oral, Q12H famotidine 20 mg tab 20 mg 1 Tab, Oral, On-CALL furosemide 40 mg/4 mL inj 40 mg 4 mL, IV Push, Daily hydrochlorothiazide 25 mg tab 25 mg 1 Tab, Oral, Daily lisinopril 5 mg tab 5 mg 1 Tab, Oral, Daily loratadine 10 mg tab 10 mg 1 Tab, Oral, Daily methylPREDNISolone succinate 40 mg/1 mL inj PF 40 mg 1 mL, IntraVENous, Q6H metoprolol succinate XL 25 mg tab 25 mg 1 Tab, Oral, BID mometasone/formoterol 100/5 mcg inh 2 Puff, Inhalation, BID nicotine 21 mg/24 hr patch 1 Patch, TransDermal, Daily pneumococcal 23-nichelle vacc inj 0.5 mL 0.5 mL, IntraMuscular, [id number] Continuous: (0) PRN: (7) #NaCl 0.9% *FLUSH* inj 10 mL 10 mL, IV Push, See Comment acetaminophen 325 mg tab 650 mg 2 Tab, Oral, Q4H acetaminophen 325 mg tab 650 mg 2 Tab, Oral, Q4H docusate sodium 100 mg cap 100 mg 1 Cap, Oral, BID ondansetron 4 mg/2 mL inj 4 mg 2 mL, IV Push, Q4H ondansetron 4 mg/2 mL inj 4 mg 2 mL, IV Push, Q10Min polyethylene glycol 3350 pwd 17 g pkt 17 Gram 1 Packet, Oral, Daily Problem list: Active Problems (4) bloating luis Heart burn High blood pressure ObjectiveVS/MeasurementsVitals Signs (last 24 hrs) Last Charted Minimum MaximumTemp 97.3 (FEB 19 11:30)97.3 (FEB 19 11:30)98.0 (FEB 18 16:51)Apical HR 80 (FEB 19 12:12)80 (FEB 19 12:12)80 (FEB 19 12:12)Mon HR 102 (FEB 19 11:30)86 (FEB 19 07:44)102 (FEB 18 20:30)Periph HR 124 (FEB 18 16:51)124 (FEB 18 16:51)124 (FEB 18 16:51)Resp Rate 18 (FEB 19 10:58)14 (FEB 19 06:00)H 37 (FEB 19 08:00)SBP 122 (FEB 19 11:30)115 (FEB 19 00:30)H 145 (FEB 18 16:51)DBP 80 (FEB 19 11:30)66 (FEB 19 01:00)H 101 (FEB 18 19:30)MAP 95 (FEB 19 11:30)87 (FEB 19 01:00)120 (FEB 18 19:30)SpO2 99 (FEB 19 08:08)L 89 (FEB 18 16:51)99 (FEB 19 00:00)General: No acute distress.Eye: Normal conjunctiva.Neck: No jugular venous distention.Respiratory: Respirations are non-labored, Breath sounds are equal, ida wheezing/rales noted.Cardiovascular: Regular rhythm, No gallop, S1+ S2 No S3 or S4 [place]..Gastrointestinal: Soft, Non-tender, Non-distended, Normal bowel sounds.Integumentary: No rash.Neurologic: No focal deficits.Psychiatric: Cooperative. Gastrointestinal: Soft, Non-tender, Non-distended, Normal bowel sounds. Integumentary: No rash. Neurologic: No focal deficits. Psychiatric: Cooperative. Results ReviewGeneral resultsInterpretation: FEB 18 18:35 141 | 104 | 8 / 98 L 3.2 | 27 | L 0.50 \\ FEB 18 18:35 \\ 14.0 / H 10.9 348 / 40.8 \\Labs (Last four charted values)WBC H 10.9(FEB 18)HB 14.0(FEB 18)HCT 40.8(FEB 19)42.0(FEB 18)Plt 348(FEB 18)Na 141(FEB 18)K L 3.2(FEB 18)Cl 104(FEB 18)CO2 27(FEB 18)BUN 8(FEB 18)Cr L 0.50(FEB 18)Glu R 98(FEB 18)Ca 8.5(FEB 18)Troponin 0.030(FEB 19)0.030(FEB 18)PROBNP H 1955(FEB 18) Radiology Results (Last 48 hours)[id number] -- 02/20/2016 04:03CR Chest 1 Vw Portable (02/19/2016 17:38) Result: PORTABLE CHESTHISTORY: Shortness of breath for 2 months, hypoxia.COMPARISON: None.FINDINGS: A single portable radiograph of the chest was performed. Thereare cardiac electrodes overlying the chest wall. There is cardiomegaly.The aortic contours are normal. The lungs are well expanded withno infiltrate or edema. There is mild pulmonary vascular congestion.There are no pleural effusions. There is no pneumothorax identified. Thevisualized osseous structures demonstrate AC joint degenerative changes. IMPRESSION: Cardiomegaly with pulmonary venous vascular congestion.There is no edema, infiltrate, or effusion.. Plt 348(FEB 18) Na 141(FEB 18) K L 3.2(FEB 18) Cl 104(FEB 18) CO2 27(FEB 18) BUN 8(FEB 18) Cr L 0.50(FEB 18) Glu R 98(FEB 18) Ca 8.5(FEB 18) Troponin 0.030(FEB 19)0.030(FEB 18) PROBNP H 195(FEB 18) Radiology Results (Last 48 hours) [id number] -- 02/20/2016 04:03 CR Chest 1 Vw Portable (02/19/2016 17:38) Result: PORTABLE CHESTHISTORY: Shortness of breath for 2 months, hypoxia.COMPARISON: None.FINDINGS: A single portable radiograph of the chest was performed. Thereare cardiac electrodes overlyin g the chest wall. There is cardiomegaly.The aortic contours are normal. The lungs are well expanded withno infiltrate or edema. There is mild pulmonary vascular congestion.There are no pleural effusions. There is no pneumothorax identified. Thevisualized osseous structures demonstrate AC joint degenerative changes. IMPRESSION: Cardiomegaly with pulmonary venous vascular congestion.There is no edema, infiltrate, or effusion.. Impression and Planacute hypoxic resp failure-multifactorialacute systolic + diastolic CHF-EF 35% with pulm edema/fluid overloadlikely underlying copd with acute exacerbationheavy/long standing tobacco uselikely acute bronchitisleukocytosisrule out PEHx nasal allergieshypokalemiaHTNrecent panendoscopyPlan:cont doxy, taper steroids, cont nebs and claritin, add dulera, will need out pt PFT and pulm consultget CTA chest, checked echo, cards consult, lasix as able, follow renal fxs and replace K prncont ASA for now, cont nicotine patch, urge to quit tobacco, long d/w pt and spouse. Hx nasal allergies hypokalemia HTN recent panendoscopy Plan: cont doxy, taper steroids, cont nebs and claritin, add dulera, will need out pt PFT and pulm consult get CTA chest, checked echo, cards consult, lasix as able, follow renal fxs and replace K prn cont ASA for now, cont nicotine patch, urge to quit tobacco, long d/w pt and spouse. Extracted from: Title: IK note Author: LENI INFANTE, Date: 02/20/16 Mhtvxsnxdu45 y old F admitted with AHRP and possible pulm edemapt seen this am, awake, resting comfortably, some mild cough and wheezing +no cp, emesis, rash, fever. no cp, emesis, rash, fever. Health StatusAllergies:Allergic Reactions (Selected)Severity Not DocumentedSulfamethoxazole- Nausea and vomiting.,Allergies (1) ActiveReactionsulfamethoxazoleNausea and vomitingCurrent medications: (Selected)Inpatient MedicationsOrderedClaritin: 10 mg, Oral, DailyDulera 100 mcg-5 mcg/inh inhalation aerosol: 2 Puff, Inhalation, BIDDuoNeb 0.5 mg-2.5 mg/3 mL inhalation solution: 3 mL, Nebulized Inhalation, T5LCzmptqss 21 mg/24 hr transdermal film, extended release: 1 Patch, TransDermal, DailyLasix bolus: 40 mg, IV Push, DailyMetoprolol Succinate ER: 25 mg, Oral, BIDMiraLax: 17 Gram, Oral, Daily, PRN: ConstipationPepcid: 20 mg, Oral, U05TVwzy-CJTVYO: 40 mg, IntraVENous, K2MGvlncho: 650 mg, Oral, Q4H, PRN: FeverTylenol: 650 mg, Oral, Q4H, PRN: Pain (Mild 1-3)Zofran: 4 mg, IV Push, Q4H, PRN: Nausea/Vomitingaspirin: 81 mg, Chew, Dailydocusate sodium: 100 mg, Oral, BID, PRN: Constipationdoxycycline: 100 mg, Oral, BIDhydrochlorothiazide: 25 mg, Oral, Dailypotassium chloride 20 mEq oral tablet, extended release: 40 mEq, 2 Tab, Oral, 1-TimePrescriptionsPrescribedPhillips Colon Health oral capsule: 1 Cap, Oral, Daily, 30 Cap, 0 Refill(s)Documented MedicationsDocumentedMetoprolol Tartrate: 12.5 mg, Oral, Daily, 0 Refill(s)Premarin: 1 Tab, Oral, Daily, 0 Refill(s)hydrochlorothiazide: 25 mg, Oral, Daily, 0 Refill(s),Home Medications (4) Activehydrochlorothiazide 25 mg, Oral, DailyMetoprolol Tartrate 12.5 mg, Oral, DailyPhillips Colon Health oral capsule 1 Cap, Oral, DailyPremarin 1 Tab, Oral, Daily,Medications (17) ActiveScheduled: (12)albuterol-ipratropium inh 3 mL 3 mL, Nebulized Inhalation, X5Ntxiaani 81 mg chew tab 81 mg 1 Tab, Chew, Dailydoxycycline hyclate 100 mg cap 100 mg 1 Cap, Oral, BIDfamotidine 20 mg tab 20 mg 1 Tab, Oral, E76Dvynrkyluvt 40 mg/4 mL inj 40 mg 4 mL, IV Push, Dailyhydrochlorothiazide 25 mg tab 25 mg 1 Tab, Oral, Dailyloratadine 10 mg tab 10 mg 1 Tab, Oral, DailymethylPREDNISolone succinate 40 mg/1 mL inj PF 40 mg 1 mL, IntraVENous, T9Jcyqicwiwgk succinate XL 25 mg tab 25 mg 1 Tab, Oral, BIDmometasone/formoterol 100/5 mcg inh 2 Puff, Inhalation, BIDnicotine 21 mg/24 hr patch 1 Patch, TransDermal, Dailypotassium chloride CR 20 mEq tab 40 mEq 2 Tab, Oral, 1-TimeContinuous: (0)PRN: (5)acetaminophen 325 mg tab 650 mg 2 Tab, Oral, C4Ujepdridsivajt 325 mg tab 650 mg 2 Tab, Oral, E7Ndrtwpfpp sodium 100 mg cap 100 mg 1 Cap, Oral, BIDondansetron 4 mg/2 mL inj 4 mg 2 mL, IV Push, G8Rfburwgdbyfxp glycol 3350 pwd 17 g pkt 17 Gram 1 Packet, Oral, DailyProblem list:Active Problems (4)bloating luis Heart burn High blood pressure Premarin 1 Tab, Oral, Daily , Medications (17) Active Scheduled: (12) albuterol-ipratropium inh 3 mL 3 mL, Nebulized Inhalation, Q4H aspirin 81 mg chew tab 81 mg 1 Tab, Chew, Daily doxycycline hyclate 100 mg cap 100 mg 1 Cap, Oral, BID famotidine 20 mg tab 20 mg 1 Tab, Oral, Q12H furosemide 40 mg/4 mL inj 40 mg 4 mL, IV Push, Daily hydrochlorothiazide 25 mg tab 25 mg 1 Tab, Oral, Daily loratadine 10 mg tab 10 mg 1 Tab, Oral, Daily methylPREDNISolone succinate 40 mg/1 mL inj PF 40 mg 1 mL, IntraVENous, Q6H metoprolol succinate XL 25 mg tab 25 mg 1 Tab, Oral, BID mometasone/formoterol 100/5 mcg inh 2 Puff, Inhalation, BID nicotine 21 mg/24 hr patch 1 Patch, TransDermal, Daily potassium chloride CR 20 mEq tab 40 mEq 2 Tab, Oral, 1-Time Continuous: (0) PRN: (5) acetaminophen 325 mg tab 650 mg 2 Tab, Oral, Q4H acetaminophen 325 mg tab 650 mg 2 Tab, Oral, Q4H docusate sodium 100 mg cap 100 mg 1 Cap, Oral, BID ondansetron 4 mg/2 mL inj 4 mg 2 mL, IV Push, Q4H polyethylene glycol 3350 pwd 17 g pkt 17 Gram 1 Packet, Oral, Daily Problem list: Active Problems (4) bloating luis Heart burn High blood pressure ObjectiveVS/MeasurementsVitals Signs (last 24 hrs) Last Charted Minimum MaximumTemp 98.0 (FEB 18 16:51)98.0 (FEB 18 16:51)98.0 (FEB 18 16:51)Mon HR 96 (FEB 19 08:08)86 (FEB 19 07:44)102 (FEB 18 20:30)Periph HR 124 (FEB 18 16:51)124 (FEB 18 16:51)124 (FEB 18 16:51)Resp Rate 15 (FEB 19 07:44)14 (FEB 19 06:00)H 31 (FEB 18 23:30)SBP 118 (FEB 19 08:08)115 (FEB 19 00:30)H 145 (FEB 18 16:51)DBP H 91 (FEB 19 08:08)66 (FEB 19 01:00)H 101 (FEB 18 19:30)MAP 93 (FEB 19 07:44)87 (FEB 19 01:00)120 (FEB 18 19:30)SpO2 99 (FEB 19 08:08)L 89 (FEB 18 16:51)99 (FEB 19 00:00)General: No acute distress.Eye: Normal conjunctiva.Neck: No jugular venous distention.Respiratory: Respirations are non-labored, Breath sounds are equal, ida wheezing/rales noted.Cardiovascular: Regular rhythm, No gallop, S1+ S2 No S3 or S4 [place]..Gastrointestinal: Soft, Non-tender, Non-distended, Normal bowel sounds.Integumentary: No rash.Neurologic: No focal deficits.Psychiatric: Cooperative. Gastrointestinal: Soft, Non-tender, Non-distended, Normal bowel sounds. Integumentary: No rash. Neurologic: No focal deficits. Psychiatric: Cooperative. Results ReviewGeneral resultsInterpretation: FEB 18 18:35 141 | 104 | 8 / 98 L 3.2 | 27 | L 0.50 \\ FEB 18 18:35 \\ 14.0 / H 10.9 348 / 40.8 \\Labs (Last four charted values)WBC H 10.9(FEB 18)HB 14.0(FEB 18)HCT 40.8(FEB 19)42.0(FEB 18)Plt 348(FEB 18)Na 141(FEB 18)K L 3.2(FEB 18)Cl 104(FEB 18)CO2 27(FEB 18)BUN 8(FEB 18)Cr L 0.50(FEB 18)Glu R 98(FEB 18)Ca 8.5(FEB 18)Troponin 0.030(FEB 19)0.030(FEB 18)PROBNP H 195(FEB 18) Radiology Results (Last 48 hours)[id number] -- 02/20/2016 04:03CR Chest 1 Vw Portable (02/19/2016 17:38) Result: PORTABLE CHESTHISTORY: Shortness of breath for 2 months, hypoxia.COMPARISON: None.FINDINGS: A single portable radiograph of the chest was performed. Thereare cardiac electrodes overlying the chest wall. There is cardiomegaly.The aortic contours are normal. The lungs are well expanded withno infiltrate or edema. There is mild pulmonary vascular congestion.There are no pleural effusions. There is no pneumothorax identified. Thevisualized osseous structures demonstrate AC joint degenerative changes. IMPRESSION: Cardiomegaly with pulmonary venous vascular congestion.There is no edema, infiltrate, or effusion.. Plt 348(FEB 18) Na 141(FEB 18) K L 3.2(FEB 18) Cl 104(FEB 18) CO2 27(FEB 18) BUN 8(FEB 18) Cr L 0.50(FEB 18) Glu R 98(FEB 18) Ca 8.5(FEB 18) Troponin 0.030(FEB 19)0.030(FEB 18) PROBNP H 1956(FEB 18) Radiology Results (Last 48 hours) [id number] -- 02/20/2016 04:03 CR Chest 1 Vw Portable (02/19/2016 17:38) Result: PORTABLE CHESTHISTORY: Shortness of breath for 2 months, hypoxia.COMPARISON: None.FINDINGS: A single portable radiograph of the chest was performed. Thereare cardiac electrodes overlyin g the chest wall. There is cardiomegaly.The aortic contours are normal. The lungs are well expanded withno infiltrate or edema. There is mild pulmonary vascular congestion.There are no pleural effusions. There is no pneumothorax identified. Thevisualized osseous structures demonstrate AC joint degenerative changes. IMPRESSION: Cardiomegaly with pulmonary venous vascular congestion.There is no edema, infiltrate, or effusion.. Impression and Planacute hypoxic resp failure-multifactoriallikely underlying copd with acute exacerbationheavy/long standing tobacco uselikely acute bronchitisleukocytosisrule out PEHx nasal allergiespossible fluid overload/pulm edema/elevated pro-BNPhypokalemiaHTNrecent panendoscopyPlan:add doxy, add steroids, add nebs and claritin, add dulera, will need out pt PFT and pulm consultget CTA chest, check echo, cards consult, lasix as able, follow renal fxs and replace K prncont ASA for now, cont nicotine patch, urge to quit tobacco, long d/w pt and spouse. hypokalemia HTN recent panendoscopy Plan: add doxy, add steroids, add nebs and claritin, add dulera, will need out pt PFT and pulm consult get CTA chest, check echo, cards consult, lasix as able, follow renal fxs and replace K prn cont ASA for now, cont nicotine patch, urge to quit tobacco, long d/w pt and spouse. Hospital Discharge Instructions Patient EducationAngiogram, Care After Form - Daily Weight Record Heart Failure Heart-Healthy Eating Plan Hypoxemia Radial Site Care Smoking Cessation, Tips For Success Smoking, You Can Quit, Ftua-wh-Uldp"
--- OUTSIDE RECORDS SUMMARY | 2016-12-09 10:11 | External Medical Summary Rpt ---
Demographics Preferred Language Venezuelan Marital Status Unknown Judaism Affiliation Unknown Race Unknown Ethnic Group Unknown Author Author , Organization [employer] Address Unknown Phone Unavailable Purpose Continuity of Care Document - through 2016 Immunization No patient found.
--- OUTSIDE RECORDS SUMMARY | 2016-12-09 10:11 | External Medical Summary Rpt ---
Demographics Preferred Language Dominican Marital Status Unknown Congregational Affiliation Unknown Race Unknown Ethnic Group Unknown Author Author , Organization [employer] Address Unknown Phone Unavailable Purpose Continuity of Care Document - through 2016 Immunization No patient found.
--- OUTSIDE RECORDS SUMMARY | 2016-12-09 10:11 | External Medical Summary Rpt ---
Author Author [facility] Organization [facility] Address Unknown Phone Unavailable Care Team Providers Care Administrative Technician Name Role Phone CHADWICK YUSUF PCP [phone] Encounter [facility] [id number] Date(s): 02/19/16 - 02/22/16 [facility] [address] [place] [id number]- Discharge Diagnosis: Hypoxemia Discharge Diagnosis: Acute CHF [...] AM) [1.5-2.4 mg/dL] 1Result Comment: CALLED TO:Jes Wilkesron DATE/TIME CALLED:02/21/2016 07:32:07 EDT READ BACK AND [...] *LOW*(02/21/16 (02/19/16 6:35 PM) x10(3)/uL] 6:12 AM) [place] % 3.6 % (02/21/16 5.7 % (02/19/16 [3.0-9.0 %] 6:12 AM) 6:35 PM) [place] # 0.38 K/uL 0.62 K/uL [0.16-1.00 (02/21/16 [...] IK note Author: LENI INFANTE Date: 02/21/16 Cympyoowsa72 y old F admitted with AHRP and [...] mL inhalation solution: 3 mL, Nebulized Inhalation, U0VYtrsumox 21 mg/24 hr transdermal film, extended release: 1 Patch, TransDermal, DailyLasix bolus: 40 mg, IV Push, DailyMetoprolol Succinate ER: 25 mg, Oral, BIDMiraLax: 17 Gram, Oral, Daily, PRN: ConstipationNormal Saline Flush: 10 mL, IV Push, G59JZsbyki Saline Flush: 10 mL, IV Push, See Comment, PRN: IV UsePepcid: 20 mg, Oral, On-CALLPepcid: 20 mg, Oral, A42ZHkkv-GIAKYX: 40 mg, IntraVENous, BIDTylenol: 650 mg, Oral, [...] NoonPending Completepneumococcal 23-polyvalent vaccine: 0.5 mL, IntraMuscular, J31RMxlQtvlljlktj MedicationsDocumentedMetoprolol Tartrate 25 mg oral tablet: 0.5 [...] inj 10 mL 10 mL, IV Push, H19Faqxttgmso-rcanolkrxzq inh 3 mL 3 mL, Nebulized Inhalation, I8Ixpgpmqm 81 mg chew tab 81 mg 1 Tab, Chew, Dailyaspirin 81 mg chew tab 81 mg 1 Tab, Oral, On-CALLdoxycycline hyclate 100 mg cap 100 mg 1 Cap, Oral, BIDfamotidine 20 mg tab 20 mg 1 Tab, Oral, R08Kdsogvqjclb 20 mg tab 20 mg 1 Tab, [...] mg tab 650 mg 2 Tab, Oral, N0Whchozpgiedmww 325 mg tab 650 mg 2 Tab, Oral, F2Kexjfbapn sodium 100 mg cap 100 mg 1 Cap, Oral, BIDondansetron 4 mg/2 mL inj 4 mg 2 mL, IV Push, C7Xfcndidiesad 4 mg/2 mL inj 4 mg 2 mL, IV Push, C03Vxusahdeegrypgb glycol 3350 pwd 17 g pkt 17 [...] gallop, S1+ S2 No S3 or S4 [place]..Gastrointestinal: Soft, Non-tender, Non-distended, Normal bowel sounds.Integumentary: No [...] H 1956(FEB 18) Radiology Results (Last 48 hours)[id number] -- 02/20/2016 04:03CR Chest 1 Vw Portable [...] not well imaged due to motion artifact.2. Mffy-yl-qqcdbloq centrilobular emphysema.3. Mild interstitial edema with mild [...] IK note Author: LENI INFANTE, Date: 02/20/16 Mpnoygpmek79 y old F admitted with AHRP and [...] mL inhalation solution: 3 mL, Nebulized Inhalation, G2DRspwoyrk 21 mg/24 hr transdermal film, extended release: 1 Patch, TransDermal, DailyLasix bolus: 40 mg, IV Push, DailyMetoprolol Succinate ER: 25 mg, Oral, BIDMiraLax: 17 Gram, Oral, Daily, PRN: ConstipationNormal Saline Flush: 10 mL, IV Push, Q78DNilwdb Saline Flush: 10 mL, IV Push, See Comment, PRN: IV UsePepcid: 20 mg, Oral, On-CALLPepcid: 20 mg, Oral, R91EQmkm-XINMIH: 40 mg, IntraVENous, N0GRmnfxoq: 650 mg, Oral, Q4H, PRN: FeverTylenol: 650 mg, Oral, Q4H, PRN: Pain (Mild 1-3)Zofran: 4 mg, IV Push, Q10Min, PRN: Nausea/VomitingZofran: 4 mg, IV Push, Q4H, PRN: Nausea/Vomitingaspirin: 81 mg, Chew, Dailyaspirin: 81 mg, Oral, On-CALLdocusate sodium: 100 mg, Oral, BID, PRN: Constipationdoxycycline: 100 mg, Oral, BIDhydrochlorothiazide: 25 mg, Oral, Dailylisinopril: 5 mg, Oral, Dailypneumococcal 23-polyvalent vaccine: 0.5 mL, IntraMuscular, F69BWqaPnxqahybqiivwWwkusvtyuiCjsrheou Colon Health oral capsule: 1 Cap, Oral, [...] inj 10 mL 10 mL, IV Push, U45Qtylisbuai-pajggyfqhrz inh 3 mL 3 mL, Nebulized Inhalation, U1Dlsbnxhx 81 mg chew tab 81 mg 1 Tab, Chew, Dailyaspirin 81 mg chew tab 81 mg 1 Tab, Oral, On-CALLdoxycycline hyclate 100 mg cap 100 mg 1 Cap, Oral, BIDfamotidine 20 mg tab 20 mg 1 Tab, Oral, J82Vliuaksfskd 20 mg tab 20 mg 1 Tab, Oral, On-CALLfurosemide 40 mg/4 mL inj 40 mg 4 mL, IV Push, Dailyhydrochlorothiazide 25 mg tab 25 mg 1 Tab, Oral, Dailylisinopril 5 mg tab 5 mg 1 Tab, Oral, Dailyloratadine 10 mg tab 10 mg 1 Tab, Oral, DailymethylPREDNISolone succinate 40 mg/1 mL inj PF 40 mg 1 mL, IntraVENous, X3Bmvrnbxxikd succinate XL 25 mg tab 25 mg 1 Tab, Oral, BIDmometasone/formoterol 100/5 mcg inh 2 Puff, Inhalation, BIDnicotine 21 mg/24 hr patch 1 Patch, TransDermal, Dailypneumococcal 23-nichelle vacc inj 0.5 mL 0.5 mL, IntraMuscular, K79XXxhYsldgocihf: (0)PRN: (7)#NaCl 0.9% *FLUSH* inj 10 mL 10 mL, IV Push, See Commentacetaminophen 325 mg tab 650 mg 2 Tab, Oral, P6Adcdfmsehhyjvk 325 mg tab 650 mg 2 Tab, Oral, M7Uytytxash sodium 100 mg cap 100 mg 1 Cap, Oral, BIDondansetron 4 mg/2 mL inj 4 mg 2 mL, IV Push, K5Ekhvixddvptu 4 mg/2 mL inj 4 mg 2 mL, IV Push, W49Jstoyroxoutwreq glycol 3350 pwd 17 g pkt 17 [...] vacc inj 0.5 mL 0.5 mL, IntraMuscular, F26GPvq Continuous: (0) PRN: (7) #NaCl 0.9% *FLUSH* [...] gallop, S1+ S2 No S3 or S4 [place]..Gastrointestinal: Soft, Non-tender, Non-distended, Normal bowel sounds.Integumentary: No [...] H 1955(FEB 18) Radiology Results (Last 48 hours)[id number] -- 02/20/2016 04:03CR Chest 1 Vw Portable [...] 195(FEB 18) Radiology Results (Last 48 hours) [id number] -- 02/20/2016 04:03 CR Chest 1 Vw [...] IK note Author: LENI INFANTE, Date: 02/20/16 Iiuzxbaxox8 y old F admitted with AHRP and [...] mL inhalation solution: 3 mL, Nebulized Inhalation, L8UOmfipojc 21 mg/24 hr transdermal film, extended release: 1 Patch, TransDermal, DailyLasix bolus: 40 mg, IV Push, DailyMetoprolol Succinate ER: 25 mg, Oral, BIDMiraLax: 17 Gram, Oral, Daily, PRN: ConstipationPepcid: 20 mg, Oral, A33AWurt-EKNMJA: 40 mg, IntraVENous, E4YTawcfhl: 650 mg, Oral, Q4H, PRN: FeverTylenol: 650 [...] inh 3 mL 3 mL, Nebulized Inhalation, A2Cemxzqty 81 mg chew tab 81 mg 1 Tab, Chew, Dailydoxycycline hyclate 100 mg cap 100 mg 1 Cap, Oral, BIDfamotidine 20 mg tab 20 mg 1 Tab, Oral, M90Ysrhaapuqeg 40 mg/4 mL inj 40 mg 4 mL, IV Push, Dailyhydrochlorothiazide 25 mg tab 25 mg 1 Tab, Oral, Dailyloratadine 10 mg tab 10 mg 1 Tab, Oral, DailymethylPREDNISolone succinate 40 mg/1 mL inj PF 40 mg 1 mL, IntraVENous, J6Ktommxatwqq succinate XL 25 mg tab 25 mg 1 Tab, Oral, BIDmometasone/formoterol 100/5 mcg inh 2 Puff, Inhalation, BIDnicotine 21 mg/24 hr patch 1 Patch, TransDermal, Dailypotassium chloride CR 20 mEq tab 40 mEq 2 Tab, Oral, 1-TimeContinuous: (0)PRN: (5)acetaminophen 325 mg tab 650 mg 2 Tab, Oral, I8Cmlgnrjeiyohsn 325 mg tab 650 mg 2 Tab, Oral, B8Vurcdtcyo sodium 100 mg cap 100 mg 1 Cap, Oral, BIDondansetron 4 mg/2 mL inj 4 mg 2 mL, IV Push, H4Vzsdvzkxccwsu glycol 3350 pwd 17 g pkt 17 [...] gallop, S1+ S2 No S3 or S4 [place]..Gastrointestinal: Soft, Non-tender, Non-distended, Normal bowel sounds.Integumentary: No [...] H 195(FEB 18) Radiology Results (Last 48 hours)[id number] -- 02/20/2016 04:03CR Chest 1 Vw Portable [...] 1956(FEB 18) Radiology Results (Last 48 hours) [id number] -- 02/20/2016 04:03 CR Chest 1 Vw [...] Tips For Success Smoking, You Can Quit, Sxbc-ou-Gjli"
== END 2016-12-09 09:52 | disposition home or self-care (01) ==
LOC: UTC 09:07
DX: J20.9 Acute bronchitis, unspecified (principal)

== ENCOUNTER 2017-04-27 11:38 | Emergency (ER) | payer OTHER ==
[~2017-04-27] VITALS: Ht 162.6 cm; Wt 96.2 kg
[~2017-04-27 11:38] MED LIST changes: +CARVEDILOL3.125 MG PO; +ENTRESTO 49 MG1 EACH PO; +PROVENTIL0.09 MG/A1 IH
--- OUTSIDE RECORDS SUMMARY | 2017-04-27 12:00 | External Medical Summary Rpt ---
Author Author KATHERINE Parsons, [employer] Organization [employer] Address Unknown Phone Unavailable
--- OUTSIDE RECORDS SUMMARY | 2017-04-27 12:00 | External Medical Summary Rpt | CCD ---
Demographics Preferred Language Bulgarian Marital Status Unknown Congregational Affiliation Unknown Race Unknown Ethnic Group Unknown Author Author , KATHERINE MURPHY Address Unknown Phone Immunization No patient found.
--- OUTSIDE RECORDS SUMMARY | 2017-04-27 12:00 | External Medical Summary Rpt | CCD ---
Author Author , KATHERINE MURPHY Address Unknown Phone [email or web address] Purpose Continuity of Care Document - through 2016
--- OUTSIDE RECORDS SUMMARY | 2017-04-27 12:00 | External Medical Summary Rpt | CCD ---
Demographics Preferred Language Persian Marital Status Unknown Jehovah'S Witness Affiliation Unknown Race Unknown Ethnic Group Unknown Author Author , KATHERINE MURPHY Address Unknown Phone Immunization No patient found.
--- OUTSIDE RECORDS SUMMARY | 2017-04-27 12:00 | External Medical Summary Rpt | CCD ---
Author Author , KATHERINE MURPHY Address Unknown Phone Purpose Continuity of Care Document - through 2016
[2017-04-27] MEDS ORDERED: FLONASE 50 MCG16 GM (12:43)
[2017-04-27] MEDS ORDERED: TESSALON PERLE100 M1 PO (12:43)
--- NOTE | 2017-04-27 12:43 | Urgent Treatment Center Report ---
History of Present Issue Date/Time Seen by Provider 04/27/17 1235 Visit Reason Pt arrived:Walked Presenting Problem:PT C/O HEAD CONGESTION, COUGH, ITCHY EYES, AND RUNNY NOSE SINCE FRIDAY Location if Accident: Onset of symptoms date/time:/ or onset unknown for:MEDICAL HX UNKNOWN Have you (or family members/close friends) recently traveled outside the [place]? N If Yes, where/when: Have you had exposure to infectious disease within the past month? TB? Other? Specify: Patient state that she has had cough, head congestion runny nose since Friday State that she feels like it may have started out as allergies and now turning into infection. State that her throat has continued to get worse and now is painful when she swallows and her eyes area itchy State that she has had a nagging cough and feels like she is getting worse ALLERGIES Coded Allergies: Sulfa (Sulfonamide Antibiotics) (03/21/16) Tetanus Vaccines and Toxoid (TETANUS VACCINES & TOXOID) (03/21/16) amoxicillin (03/21/16) clavulanic acid (03/21/16) Home Medications Active Scripts ALBUTEROL (Proventil Hfa Inhaler) 1-2 PUFF IH Q4-6H PRN PRN SOA, wheezing, #1 CAN Prov: 12/09/16 Reported Medications Furosemide (Furosemide) 20 MG FT DAILY #30 ASPIRIN (Aspirin) 81 MG PO DAILY POTASSIUM CHL (Potassium Chloride) 20 MEQ PO DAILY Carvedilol (Carvedilol 3.125MG) 3.125 MG PO BID Sacubitril/Valsartan (Entresto 49 MG-51 MG Tablet) 1 EACH PO BID History Medical History General CAD? No Angina: No [place]: No Hypertension? Yes Hyperlipidemia? No CHF? Yes DVT? No PE? No COPD? No Asthma? No Anemia? No GERD? No Gastric ulcers? No GI Bleed? No Hernia? No Thyroid Problems? No Hypothyroidism? No CVA? No Seizures? No Diabetes? No Renal Insuffiency? No UTI? Yes Stones? No BPH? No GB Disease: No Nephritic Syndrome? No Asplenia? No Hepatitis? No Sickle Cell Disease? No Arthritis? No Migraines? No Cataracts? No Glaucoma? No MRSA? No HIV? No TB? No Anxiety? No Depression? No Cancer? No More? No Immunization HX DT/Tetanus 1996 Surgical Hx Previous Surgery?Y Tubal Ligation D & C HYSTERECTOMY HEART CATH Family History Family HX Diabetes No CAD Yes Hypertension No Hyperlipidemia No Cancer Yes TB No Social History Smoking Hx Smoker: Never Smoker Tobacco: No Packs/day 1 1/2 - 2 Packs Alcohol Alcohol: No Review of Systems All Other Systems Reviewed and Negative Constitutional denies fever ENT nose discharge, nose congestion, throat pain. Respiratory cough, denies shortness of breath, denies wheezing Cardiovascular denies chest pain Gastrointestinal denies diarrhea, denies nausea, denies vomiting Physical Exam Vital Signs Vital Signs Date Time Temp Pulse Resp B/P Pulse O2 O2 Flow FiO2 Ox Delivery Rate 04/27 1211 97.9 70 18 148/87 99 General Appearance normal appearance, WD/WN, no apparent distress Ear, Nose, Throat sinus pain/drainage, nasal congestion, tonsillar swelling, Throat red, irritated drainage noted, Tenderness noted maxillary sinsues reports clear drainage from sinsues Respiratory Status Yes: trachea midline, chest symmetrical, non tender chest. No: respiratory distress. Cardiovascular normal exam, regular rate/rhythm Neurologic alert, normal exam, oriented x 3 Medical Decision Making LABS/Meds/Orders Pt receiving controlled substance in ED? No Results/Orders Current Medication Orders Sig/Yassine Start time Last Medication Dose Route Stop Time Status Admin Ceftriaxone Sodium 1 GM ONCE ONE 04/27 1245 r IM 04/27 124 Lidocaine HCl 0 ONCE ONE 04/27 1245 AC IM 04/27 124 Methylprednisolone 125 MG ONCE ONE 04/27 1245 AC Sodium Succinate IM 04/27 1246 Lidocaine HCl 0 .STK-MED ONE 04/27 1241 DC .ROUTE Methylprednisolone 0 .STK-MED ONE 04/27 124 DC Sodium Succinate .ROUTE Ceftriaxone Sodium 0 .STK-MED ONE 04/27 1240 DCr .ROUTE Progress [facility] Progress Notes Comment Patient state that she had an odd reaction to amoxicillin but is able to take cephosporins and has taken Rocephin without reaction or problems Patient educated on chance of cross sensitivitiy Departure Departure Time of Disposition 1241 Disposition DC Home or Self Care(routine) Clinical Impression Primary Impression: Upper respiratory infection Qualifiers: URI type: unspecified URI Qualified Code: J06.9 - Acute upper respiratory infection, unspecified Condition STABLE Referrals CORINA MILLER (Family): 3 Days-Call Office if no improvement in symptoms Patient Instructions Cough, DI for Nasal Congestion Additional Instructions * Monitor Temp. Tylenol and/or Ibuprofen as needed. ER if fever is no less than 101 despite alternating Tylenol and Ibuprofen * Encourage fluids, water, Gatorade, powerade, pedialyte if /toddler/or child * Warm salt water gargles for throat irritation *Warm fluids *Sore throat lozenges *Sleep elevated *humidifier or vaporizer Lots of rest Increase fluids, water, Gatorade, powerade *Your throat swab was sent to lab for culture. Those results area typically sent to your primary care physician. Be sure to follow up in 2-3 days if no improvement so they can review those results and treat if necessary If you dont have primary care I recommend you get one, but in the mean time you will have to return to a walk in clinic Follow up IMMEDIATELY for new or worsening of symptoms OR no noticeable improvement over the next 48-72 hours. 911 immediately for any life threatening symptoms such as chest pain or difficulty breathing Discharge Counseling Counseled pt/family regarding diagnosis, home care, follow up needs Prescriptions Current Visit Scripts Fluticasone Propionate (Flonase 50 Mcg Nasal [place]) 2 SPRAY NA DAILY #1 BOT Ref 1 Benzonatate (Tessalon Perle) 100 MG PO TID #15 SGL at 0012
[2017-04-27 12:55] VITALS: BP 148/87
== END 2017-04-27 12:55 | disposition home or self-care (01) ==
LOC: UTC 11:38
DX: J06.9 Acute upper respiratory infection, unspecified (principal); I10 Essential (primary) hypertension; Z88.1 Allergy status to other antibiotic agents; Z88.7 Allergy status to serum and vaccine; Z88.2 Allergy status to sulfonamides

== ENCOUNTER 2017-06-03 14:04 | Emergency (ER) | payer OTHER ==
[~2017-06-03] VITALS: Ht 162.6 cm; Wt 95.3 kg
[~2017-06-03 14:04] MED LIST changes: +FLONASE 50 MCG16 GM; +TESSALON PERLE100 M1 PO
--- NOTE | 2017-06-03 14:37 | Urgent Treatment Center Report ---
History of Present Issue Date/Time Seen by Provider 06/03/17 0404 Visit Reason Pt arrived:Walked Presenting Problem:PT C/O SINUS TROUBLE. PT STATES THAT SHE HAS HAD COUGH, CONGESTION, SORE THROAT, AND BILATERAL EARACHES Location if Accident: Onset of symptoms date/time:/ or onset unknown for:MEDICAL HX UNKNOWN Have you (or family members/close friends) recently traveled outside the [place]? N If Yes, where/when: Have you had exposure to infectious disease within the past month? TB? Other? Specify: Patient state that she thinks she has another sinus infection. State that she has also had cough and congestion with sore throat and bilateral ear aches that has continued to get worse State that she feels pain and pressure behind his eyes and in her jaw area State that the last times she felt this she had a sinus infection. State that she also feels like she may be getting a yeast infection along with it ALLERGIES Coded Allergies: Sulfa (Sulfonamide Antibiotics) (03/21/16) Tetanus Vaccines and Toxoid (TETANUS VACCINES & TOXOID) (03/21/16) amoxicillin (03/21/16) clavulanic acid (03/21/16) Home Medications Active Scripts Fluticasone Propionate (Flonase 50 Mcg Nasal [place]) 2 SPRAY NA DAILY #1 BOT Ref 1 Prov: 04/27/17 Benzonatate (Tessalon Perle) 100 MG PO TID #15 SGL Prov: 04/27/17 ALBUTEROL (Proventil Hfa Inhaler) 1-2 PUFF IH Q4-6H PRN PRN SOA, wheezing, #1 CAN Prov: 12/09/16 Reported Medications Furosemide (Furosemide) 20 MG FT DAILY #30 ASPIRIN (Aspirin) 81 MG PO DAILY POTASSIUM CHL (Potassium Chloride) 20 MEQ PO DAILY Carvedilol (Carvedilol 3.125MG) 3.125 MG PO BID Sacubitril/Valsartan (Entresto 49 MG-51 MG Tablet) 1 EACH PO BID History Medical History General CAD? No Angina: No [place]: No Hypertension? Yes Hyperlipidemia? No CHF? Yes DVT? No PE? No COPD? No Asthma? No Anemia? No GERD? No Gastric ulcers? No GI Bleed? No Hernia? No Thyroid Problems? No Hypothyroidism? No CVA? No Seizures? No Diabetes? No Renal Insuffiency? No UTI? Yes Stones? No BPH? No GB Disease: No Nephritic Syndrome? No Asplenia? No Hepatitis? No Sickle Cell Disease? No Arthritis? No Migraines? No Cataracts? No Glaucoma? No MRSA? No HIV? No TB? No Anxiety? No Depression? No Cancer? No More? No Immunization HX DT/Tetanus 1996 Surgical Hx Previous Surgery?Y Tubal Ligation D & C HYSTERECTOMY HEART CATH Family History Family HX Diabetes No CAD Yes Hypertension No Hyperlipidemia No Cancer Yes TB No Social History Smoking Hx Smoker: Former Smoker Tobacco: Yes Type Cigarettes Packs/day 1 1/2 - 2 Packs Alcohol Alcohol: No Review of Systems All Other Systems Reviewed and Negative ENT nose discharge, nose congestion, throat pain. Respiratory cough Physical Exam Vital Signs Vital Signs Date Time Temp Pulse Resp B/P Pulse O2 O2 Flow FiO2 Ox Delivery Rate 06/03 1418 98.5 83 16 123/93 97 General Appearance normal appearance, WD/WN, no apparent distress Ear, Nose, Throat sinus pain/drainage, nasal congestion, Pain and tenderness in maxillary sinus, state that she has same pain a week or so ago that went away and now has returned Respiratory Status Yes: trachea midline, chest symmetrical, non tender chest. No: respiratory distress. Lung Sounds bilateral: normal breath sounds, lungs clear. Cardiovascular normal exam, regular rate/rhythm, no peripheral edema Neurologic alert, normal exam, oriented x 3 Medical Decision Making LABS/Meds/Orders Pt receiving controlled substance in ED? No Departure Departure Time of Disposition 1433 Disposition DC Home or Self Care(routine) Clinical Impression Primary Impression: Sinusitis Qualifiers: Sinusitis location: unspecified location Chronicity: acute Recurrence: not specified as recurrent Qualified Code: J01.90 - Acute sinusitis, unspecified Condition STABLE Patient Instructions DI for Sinusitis, Sinusitis, Sinusitis (Alternative Therapy ) Additional Instructions Start antibiotic. Sinus infections may take 2-3 days to notice much improvement so be sure to use conservative measures as discussed for symptoms Ok to continue Sudafed Flonase 2 spray in each nostril daily to help with nasal congestion, sinus an ear pressure/inflammation Lots of Fluids Sleep elevated Humidifer/vaporizer Augmentin can cause GI effects. Probiotics may help to prevent these symptoms make sure that you eat yogurt at least twice daily or take a probiotic which may help prevent GI symptoms Discharge Counseling Counseled pt/family regarding diagnosis, medications/RX, home care, follow up needs Prescriptions Current Visit Scripts Doxycycline Hyclate (Vibramycin) 100 MG PO BID #14 CAP Fluconazole (Diflucan 150MG) 150 MG PO DAILY #2 TAB Take one tablet now and one at the end of antibiotics Dextromethorphan Polistirex (Delsym) 10 ML PO Q12H #200 ML at 9477
[2017-06-03] MEDS ORDERED: DOXYCYCLINE HY100 M4 PO (14:48)
[2017-06-03] MEDS ORDERED: DIFLUCAN150 MG PO (14:48)
[2017-06-03] MEDS ORDERED: DELSYM30 MG/5 ML PO (14:55)
--- OUTSIDE RECORDS SUMMARY | 2017-06-03 15:05 | External Medical Summary Rpt | CCD ---
Demographics Preferred Language Czech Marital Status Unknown Yazidi Affiliation Unknown Race Unknown Ethnic Group Unknown Author Author , KATHERINE MURPHY Address Unknown Phone Immunization No patient found.
--- OUTSIDE RECORDS SUMMARY | 2017-06-03 15:05 | External Medical Summary Rpt | CCD ---
Author Author , KATHERINE MURPHY Address Unknown Phone [email or web address] Purpose Continuity of Care Document - through 2016
--- OUTSIDE RECORDS SUMMARY | 2017-06-03 15:05 | External Medical Summary Rpt | CCD ---
Author Author , KATHERINE MURPHY Address Unknown Phone [email or web address] Purpose Continuity of Care Document - through 2016
--- OUTSIDE RECORDS SUMMARY | 2017-06-03 15:05 | External Medical Summary Rpt | CCD ---
Demographics Preferred Language Yoruba Marital Status Unknown Cheondoism Affiliation Unknown Race Unknown Ethnic Group Unknown Author Author , KATHERINE MURPHY Address Unknown Phone Immunization No patient found.
[2017-06-03 15:06] VITALS: BP 123/93
== END 2017-06-03 15:06 | disposition home or self-care (01) ==
LOC: UTC 14:04
DX: J01.90 Acute sinusitis, unspecified (principal)